=== PATIENT | female | born 1970 | race Caucasian/White ===

== ENCOUNTER 2024-08-24 13:18 | Emergency (ER) | payer BC ==
[~2024-08-24] VITALS: Ht 154.9 cm; Wt 45.4 kg
--- NOTE | 2024-08-24 14:30 | NUR ---
PATIENT C/O GENERALIZED PAIN, SHE STATES PAIN TO LOWER BACK AND RIGHT RIB ARE NEW PAIN, ALSO STATES SHE HAS CHRONIC PAIN TO BILATERAL HANDS AND FEET DUE TO NUEROPATHY. PATIENT ALSO STATES SHE HAS BEEN GETTING MUSCLE SPASMS FREQUENTLY WHICH MAKE IT DIFFICULT TO WALK, THIS HAS BEEN GOING ON FOR 3 DAYS. Addendum: 08/24/24 at 8 by JACINTO PATIENT ALSO C/O INTERMITTENT RIGHT RIB PAIN, TENDER TO TOUCH
[2024-08-24] MEDS: 0.9%NACL 1000ML 1,000 ML IV ONE (14:51)
[2024-08-24] MEDS: PROMETHAZINE HCL 25 MG TABLET PO ONE (14:52)
--- NOTE | 2024-08-24 15:02 | HMCIMG ---
Exam Type: CT HEAD/BRAIN W/O CONTRAST Clinical Information: dizziness/numbness Comparison: None CT Dose Index (CTDI): 57.33 mGy Dose Length Product (DLP): 956.79 total mGy-cm Findings: This study was performed using dose reduction techniques to include automated exposure control and/or adjustment of the mA and/or kV according to patient size. The examination is unremarkable except for atrophy Marte-white matter junction is preserved. No intra or extra axial lesions or fluid collections are seen. Specifically, marte and white matter are normal in signal characteristics with normal caliber of ventricles and periventricular cisterns with no evidence of intra or or extra-axial hemorrhage, lacunar infarct, or major territorial infarct, mass, or other abnormality. There are no infarcts. There are no hemorrhages. Periventricular white matter locations are preserved. The orbital contents and structures of the posterior fossa are intact. Impression: Atrophy. This study was performed using dose reduction techniques to include automated exposure control and/or adjustment of the mA and/or kV according to patient size.
[2024-08-24 15:28] LABS: BASOPHILS # (AUTO) 0.09 K/uL (0.00-0.20); BASOPHILS % (AUTO) 1.1 % (0.0-5.0); EOSINOPHILS # (AUTO) 0.36 K/uL (0.00-0.70); EOSINOPHILS % (AUTO) 4.3 % (0.0-8.0); HEMATOCRIT 41.7 % (36-48); IMMATURE GRANULOCYTE ABSOLUTE 0.03 K/uL (0-1); LYMPHOCYTES % (AUTO) 36.2 % (21.0-51.0); MEAN CORPUSCULAR HEMOGLOBIN 32.3 pg (27.0-33.0); MEAN CORPUSCULAR HGB CONC 32.9 g/dL (32.0-36.0); MEAN CORPUSCULAR VOLUME 98.3 fL (79-99); MONOCYTES # (AUTO) 0.9 K/uL (0.1-1.0); MONOCYTES % (AUTO) 10.3 % (3.0-13.0); NEUTROPHILS % (AUTO) 47.7 % (40.0-77.0); PLATELET COUNT (AUTO) 156 K/uL (130-400); RED BLOOD CELL COUNT(AUTO) 4.24 MIL/uL (4.00-5.50); RED CELL DISTRIBUTION WIDTH 15.7 % (11.0-15.5); WHITE BLOOD COUNT (AUTO) 8.3 K/uL (4.8-10.8)
[2024-08-24 15:40] LABS: CREATININE 0.6 mg/dL (0.5-1.0); POTASSIUM 4.4 mmol/L (3.5-5.1)
[2024-08-24 15:49] LABS: MAGNESIUM 2.1 mg/dL (1.80-2.40)
--- NOTE | 2024-08-24 16:13 | HMCIMG ---
RIGHT RIBS/CHEST RADIOGRAPHS - 5 VIEWS INDICATION: Right rib pain COMPARISON: None FINDINGS: Heart size is normal. Lungs are clear. No evidence for pneumothorax or pleural effusion. No evidence for pulmonary parenchymal contusion. Nondisplaced lateral right eighth rib fracture. No radiopaque foreign body noted. IMPRESSION: 1. Nondisplaced lateral right eighth rib fracture. 2. No radiographic evidence for any acute cardiopulmonary process.
[2024-08-24 16:59] LABS: BILIRUBIN,URINE NEGATIVE (NEGATIVE); COLOR,URINE LIGHT-YELLOW (YELLOW); GLUCOSE, URINE (UA) NEGATIVE (NEGATIVE); KETONES,URINE NEGATIVE (NEGATIVE); LEUKOCYTE ESTERASE ,URINE 500 Leu/uL (NEGATIVE); NITRATE,URINE NEGATIVE (NEGATIVE); OCCULT BLOOD,URINE NEGATIVE (NEGATIVE); PH,URINE 7.5 (5.0-8.0); PROTEIN,URINE NEGATIVE (NEGATIVE); UROBILINOGEN,URINE 0.2 mg/dL (0.2-1.0)
[2024-08-24 17:03] LABS: ADD UA MICROSCOPIC YES; APPEARANCE,URINE HAZY (CLEAR)
[2024-08-24 17:11] LABS: BACTERIA,URINE MOD /HPF (None Seen); RBC,URINE 0-1 /HPF (0-1); SQUAMOUS EPITHELIAL CELL,UR RARE /HPF (0-2); WBC,URINE 26-50 /HPF (0-1)
[2024-08-24] MEDS: ketOROlac 30MG VIAL (30MG/ML) IVP ONE (17:30)
--- NOTE | 2024-08-24 18:31 | ERN ---
General Chief Complaint: Low Back Pain/Injury Stated Complaint: LOSING FEELING IN BOTH LEGS FOR A WEEK/DIZZY Time Seen by MD: 17:19 History of Present Illness Initial Comments Patient comes in with a week-long history of feeling lightheaded and decreased sensation in her bilateral lower extremities as well as right chest pain. Severity: moderate Allergies: Coded Allergies: lidocaine (Unverified Allergy, Unknown, 08/24/24) haloperidol (Unverified Adverse Reaction, Unknown, 08/24/24) " CONVULSIONS" STATED BY PATIENT methocarbamol (Unverified Adverse Reaction, Unknown, 08/24/24) Past Medical History Past Medical History: Asthma, Other Medical History Other: CVAX2, NEUROPATHY Past Surgical History: Other Constitutional: (-) chills, (-) diaphoresis, (-) fever, (-) malaise, (-) weakness, (-) other documentation EENTM: (-) eye pain, (-) blurred vision, (-) tearing, (-) double vision, (-) ear pain, (-) ear discharge, (-) nose pain, (-) nose congestion, (-) throat pain, (-) Throat swelling, (-) mouth pain, (-) tooth pain, (-) mouth swelling, (-) other documentation Respiratory: (-) cough, (-) orthopnea, (-) short of breath, (-) stridor, (-) wheezing, (-) other documentation Cardiovascular: (+) chest pain, (+) edema, (+) palpitations, (+) syncope, (+) dyspnea on exertion, (+) other documentation Gastrointestinal/Abdominal: (-) nausea, (-) vomiting, (-) diarrhea, (-) abdominal pain, (-) abdominal distention, (-) constipation, (-) rectal bleeding, (-) dark stool/melena, (-) other documentation Musculoskeletal: (-) Neck pain, (-) back pain, (-) Flank Pain, (-) joint pain, (-) joint swelling, (-) muscle pain, (-) muscle stiffness, (-) gout, (-) other documentation Physical Exam General Appearance: (+) mild distress Orientation: (+) alert Head/Face Trauma: No Eye: bilateral eye normal inspection, bilateral eye PERRL, bilateral eye EOMI Ear, Nose, Throat: (+) hearing grossly normal, (+) normal ENT inspection Neck: (+) normal inspection, (+) supple Respiratory Comment Patient has right chest wall tenderness Heart: (+) regular Vascular: (+) no edema, (+) normal peripheral pulse Gastrointestinal: (+) soft, (+) non-tender Results Laboratory and Microbiology Lab and Micro Result Laboratory Tests Test 08/24/24 15:15 08/24/24 16:45 White Blood Count 8.3 K/uL (4.8-10.8) Red Blood Count 4.24 MIL/uL (4.00-5.50) Hemoglobin 13.7 g/dL (12.0-16.0) Hematocrit 41.7 % (36-48) Mean Corpuscular Volume 98.3 fL (79-99) Mean Corpuscular Hemoglobin 32.3 pg (27.0-33.0) Mean Corpuscular Hemoglobin Concent 32.9 g/dL (32.0-36.0) Red Cell Distribution Width 15.7 % (11.0-15.5) H Platelet Count 156 K/uL (130-400) Mean Platelet Volume 10.6 fL (7.5-10.5) H Immature Granulocyte % (Auto) 0.4 % (0-1) Neutrophils (%) (Auto) 47.7 % (40.0-77.0) Lymphocytes (%) (Auto) 36.2 % (21.0-51.0) Monocytes (%) (Auto) 10.3 % (3.0-13.0) Eosinophils (%) (Auto) 4.3 % (0.0-8.0) Basophils (%) (Auto) 1.1 % (0.0-5.0) Neutrophils # (Auto) 4.0 K/uL (1.8-7.7) Lymphocytes # (Auto) 3.0 K/uL (1.0-4.8) Monocytes # (Auto) 0.9 K/uL (0.1-1.0) Eosinophils # (Auto) 0.36 K/uL (0.00-0.70) Basophils # (Auto) 0.09 K/uL (0.00-0.20) Absolute Immature Granulocyte (auto 0.03 K/uL (0-1) Nucleated Red Blood Cells 0.0 % (0.0-0.19) Sodium Level 140 mmol/L (136-145) Potassium Level 4.4 mmol/L (3.5-5.1) Chloride Level 105 mmol/L (101-111) Carbon Dioxide Level 28 mmol/L (21-32) Blood Urea Nitrogen 12 mg/dL (7-18) Creatinine 0.6 mg/dL (0.5-1.0) Glomerular Filtration Rate Calc 109 mL/min (>90) Random Glucose 90 mg/dL (70-105) Total Calcium 9.1 mg/dL (8.5-10.1) Magnesium Level 2.10 mg/dL (1.80-2.40) Total Creatine Kinase 97 U/L (21-232) Troponin I High Sensitivity 9 ng/L (4-50) Urine Color LIGHT-YELLOW (YELLOW) Urine Appearance HAZY (CLEAR) Urine pH 7.5 (5.0-8.0) Urine Specific [place] 1.008 (1.001-1.031) Urine Protein NEGATIVE mg/dL (NEGATIVE) Urine Glucose (UA) NEGATIVE mg/dL (NEGATIVE) Urine Ketones NEGATIVE mg/dL (NEGATIVE) Urine Occult Blood NEGATIVE (NEGATIVE) Urine Nitrate NEGATIVE (NEGATIVE) Urine Bilirubin NEGATIVE mg/dL (NEGATIVE) Urine Urobilinogen 0.2 mg/dL (0.2-1.0) Urine Leukocyte Esterase 500 [place]iney/uL (NEGATIVE) H Urine RBC 0-1 /HPF (0-1) Urine WBC 26-50 /HPF (0-1) H Urine Squamous Epithelial Cells RARE /HPF (0-2) Urine Amorphous Crystals (Auto) FEW /LPF (None Seen) Urine Bacteria MOD /HPF (None Seen) MDM Patient's symptomology suggests dehydration and possibly an infection. She has been given Zofran a chemistry panel a CBC and a UA has been ordered. Toradol has been given for her right rib pain and a chest x-ray ordered. CT scan of her head is negative chest x-ray shows a nondisplaced right rib fracture chemistry panel is normal CBC is normal patient has a urinary tract infection I will give her a g of Ancef and discharge her home with a prescription for Ancef. Patient was also concerned about the right rib pain chest x-ray showed a nondisplaced rib fracture there was nothing to do to treat that except pain medications. Patient was wondering why she was having trouble walking. I performed orthostatic hypotension measurements on her and they were normal. We have tried to have her walk again and she feels fine she would like to go home she does have a walker in her car she will use that. ED Course Orders Procedure Category Date Status Time Cbc With Differential LAB 08/24/24 Complete 14:16 Basic Metabolic Panel LAB 08/24/24 Complete 14:16 Magnesium LAB 08/24/24 Complete 14:16 Creatine Kinase, Total LAB 08/24/24 Complete 14:16 Urinalysis Profile LAB 08/24/24 Complete 14:16 Troponin I High LAB 08/24/24 Complete Sensitivity 14:16 Ct Head/Brain W/O CT 08/24/24 Resulted Contrast 14:16 Promethazine Hcl PHA 08/24/24 Complete (Phenergan) 14:30 0.9%Nacl 1000ml (Ns PHA 08/24/24 Complete 1000ml) 14:30 Ribs Uni Rt W Pa RAD 08/24/24 Resulted Chest 3+ Vws 14:58 Culture Urine MYRNA 08/24/24 In Process 17:03 Ketorolac PHA 08/24/24 Complete Tromethamine 30mg/Ml 17:30 Cyclobenzaprine Hcl PHA 08/24/24 Complete (Cyclobenzaprine Hcl 18:30 Meloxicam 7.5mg PHA 08/24/24 Complete (Mobic 7.5mg) 19:00 Cefazolin Sodium PHA 08/24/24 In Process (Ancef) 19:30 Orthostatic Vital CPOE 08/24/24 Transmitted Signs 19:03 *Nursing CPOE 08/24/24 Transmitted Communication: 19:03 Current Medications Medications (Trade) Dose Ordered Sig/Ambar Route PRN Reason Start Time Stop Time Status Last Admin Dose Admin Cefazolin Sodium (Ancef) 1 gm Q8H IVPB 08/24/24 19:30 09/03/24 19:29 Cyclobenzaprine HCl (Cyclobenzaprine HCl) 10 mg ONCE ONCE PO 08/24/24 18:30 08/24/24 18:31 DC 08/24/24 19:02 Ketorolac Tromethamine (toRADol) 30 mg ONCE ONCE IVP 08/24/24 17:30 08/24/24 17:31 DC 08/24/24 17:30 Meloxicam (Mobic 7.5mg) 15 mg ONCE ONCE PO 08/24/24 19:00 08/24/24 19:01 DC 08/24/24 19:02 Promethazine HCl (Phenergan) 12.5 mg ONCE ONCE PO 08/24/24 14:30 08/24/24 14:31 DC 08/24/24 14:52 Sodium Chloride 1,000 ml @ 0 mls/hr ONCE ONCE IV 08/24/24 14:30 08/24/24 14:31 DC 08/24/24 14:51 Vital Signs Date Time Temp Pulse Resp B/P (MAP) Pulse Ox O2 Delivery O2 Flow Rate FiO2 08/24/24 19:27 98.1 68 18 126/83 97 Room Air* 0 21 08/24/24 18:15 97.9 86 18 118/80 97 Room Air* 0 21 08/24/24 17:00 98.1 78 18 105/60 93 Room Air* 0 21 08/24/24 16:00 97.5 93 18 104/61 Room Air* 0 21 08/24/24 15:00 98.1 84 18 110/70 96 Room Air* 0 21 08/24/24 14:15 98.4 78 20 115/78 96 Room Air* 0 21 08/24/24 13:45 98.1 87 16 83/65 100 Room Air 0 08/24/24 13:45 98.1 87 16 83/65 98 Room Air* 0 21 DX & DISP Disposition: Discharge Departure Impression: Primary Impression: UTI (urinary tract infection) Additional Impression: Dehydration Condition: Stable Additional Instructions: Please return to the emergency room if you find yourself having difficulty breathing. Also return if the symptoms of the urinary tract infection such as l ightheadedness do not improve. I have written a prescription for Keflex and sent to to your pharmacy. Referrals: HO WANG MD (PCP) CELE RAND MD August 24, 2024 18:31
--- NOTE | 2024-08-24 19:00 | NUR ---
PATIENT CONTINUES TO COMPLAIN OF INTERMITTENT MUSCLE CRAMPS AND INTERMITTENT RIGHT RIB PAIN AND LOWER BACK PAIN
[2024-08-24] MEDS: CYCLOBENZAPRINE HCL 10 MG TABLET PO ONE (19:02)
[2024-08-24] MEDS: MELOXICAM 7.5 MG TABLET PO ONE (19:02)
--- NOTE | 2024-08-24 19:26 | NUR ---
ORTHOSTATICS LYIN/80 HR 70, SITTIN/83 HR 68, STANDIN/89 HR 124/89
[2024-08-24] MEDS: ceFAZolin SODIUM 2 GM VIAL IVPB SCH (20:49)
[2024-08-24 21:25] VITALS: BP 112/75; PULSE 74; RESP 18; TEMP 97.9; O2SAT 99
[2024-08-24] MEDS ORDERED: CEPH500B PO (22:07)
--- NOTE | 2024-08-24 22:09 | NUR ---
PATIENT RESTING COMFORTABLY AT THIS TIME, NO DISTRESS NOTED
[2024-08-24] MEDS: ibuPROFEN 600 MG TABLET PO ONE (22:20)
== END 2024-08-24 22:25 | disposition home or self-care (01) ==
LOC: EDH 13:18
DX: N39.0 Urinary tract infection, site not specified (principal); E86.0 Dehydration; J45.909 Unspecified asthma, uncomplicated
CPT/HCPCS: 99284; 96361; 96365; 70450; 96375; 82550; 83735; 84484; 80048; 85025; 87086 ×2; 87186; 81001; 36415; 71101; J1885 ×2; J7030; Q0169; J0690

== ENCOUNTER 2024-12-08 18:09 | Emergency (ER) | payer BC ==
[~2024-12-08] VITALS: Ht 154.9 cm; Wt 43.1 kg
[~2024-12-08 18:09] MED LIST: CEPH500B PO
--- NOTE | 2024-12-08 18:47 | ERN ---
ED Note History of Present Illness Stated Complaint: MULTIPLE COMPLAINTS Chief Complaint: Multiple Complaints Time Seen by MD: 18:12 Dictation: PATIENT IS A 53-YEAR-OLD FEMALE COMING IN WITH MULTIPLE COMPLAINTS. FIRST COMPLAINT IS SHE STATES SHE HAS HAS TINNITUS TO BOTH EARS FOR THE LAST WEEK. WITH A GENERALIZED HEADACHE NO NAUSEA NO VOMITING NO DIARRHEA. SAID SHE HAS HAD TINNITUS IN THE PAST AND USUALLY COMES WHEN SHE HAS A KIDNEY INFECTION. 2ND COMPLAINT IS OF GENERALIZED BODY WEAKNESS, 3RD COMPLAINT IS BILATERAL FLANK PAIN OVER MY KIDNEYS. NO FEVER NO CHILLS NO PRIMARY CARE DOCTOR. SHE STATES SHE IS WORKING THROUGH AN AGENCY TO GET SOCIAL SECURITY DISABILITY. SHE SAID SHE HAS BEEN TAKING IBUPROFEN [id number] NEEDED FOR HER HEADACHES. STATES HER HEADACHES RESPOND WELL TO IBUPROFEN. Allergies: Coded Allergies: lidocaine (Unverified Allergy, Unknown, 08/24/24) haloperidol (Unverified Adverse Reaction, Unknown, 08/24/24) " CONVULSIONS" STATED BY PATIENT methocarbamol (Unverified Adverse Reaction, Unknown, 08/24/24) Home Meds Active Scripts Cephalexin Monohydrate (Keflex) 500 Mg Cap, 500 MG PO QID for 7 Days, #28 CAP Prov:CELE RAND MD 08/24/24 Past Medical History Past Medical History: Asthma, Other Additional Past Medical Hx: CVAX2, NEUROPATHY Surgical History: Other History: Not Applicable RN Note Reviewed/Agreed w/PFSH: Yes Review of System Dictation CONSTITUTIONAL: NEGATIVE EXCEPT FOR HPI WEAKNESS HEAD/FACE: NEGATIVE EXCEPT FOR HPI EENT: NEGATIVE EXCEPT FOR HPI RESPIRATORY: NEGATIVE EXCEPT FOR HPI GASTROINTESTINAL/ABDOMINAL: NEGATIVE EXCEPT FOR HPI BILATERAL FLANK PAIN GENITOURINARY: NEGATIVE EXCEPT FOR HPI MUSCULOSKELETAL: NEGATIVE EXCEPT FOR HPI INTEGUMENTARY: NEGATIVE EXCEPT FOR HPI NEUROLOGICAL/PSYCH: NEGATIVE EXCEPT FOR HPI BILATERAL TINNITUS HEMATOLOGIC/LYMPHATIC: NEGATIVE EXCEPT FOR HPI ALL SYSTEMS NEGATIVE, EXCEPT NOTED ABOVE. 13 POINT REVIEW OF SYSTEMS ASSESSED AND ALL NEGATIVE EXCEPT FOR ABOVE. Initial Vital Sign VS Vital Signs Date Time Temp Pulse Resp B/P (MAP) Pulse Ox O2 Delivery O2 Flow Rate FiO2 12/08/24 18:11 97.5 79 18 160/85 98 Room Air 12/08/24 19:21 0 21 Physical Exam Dictation VITAL SIGNS REVIEWED MILD+ ACUTE DISTRESS, WELL DEVELOPED, NOURISHED. HEAD AND FACE: NON-TRAUMATIC. EYES: PERRL, PINK CONJUNCTIVAS, EYELID NO TRAUMA, ANTERIOR CHAMBER WITH ARCUS SENILIS. EARS: PINNAS INTACT AND NO SIGNS OF TRAUMA OR ERYTHEMA EAR CANALS CLEAR AND NO DISCHARGE TM NO ERYTHEMA NOSE: NO DISCHARGE, NO BLEEDING. OROPHARYNX: MOUTH NORMAL, TONGUE PINK, PHARYNX CLEAR,NO ERYTHEMA, TONSILS NO EXUDATES, NO ABSCESSES NOTED, MUCOUS MEMBRANE MOIST NECK: SUPPLE, NON-TENDER, NO THYROMEGALY, NO MASSES, NO JVD, NO BRUITS BREAST:DEFERRED CHEST:NO TENDERNESS, NO CREPITUS, NO PARADOXICAL MOVEMENT, NO RETRACTIONS LUNGS:CLEAR, WELL-VENTILATED, SYMMETRIC, NO RALES, NO WHEEZING, NO RHONCHI, NO STRIDOR, GOOD BREATH SOUNDS BILATERALLY HEART: REGULAR RATE, REGULAR RHYTHM, NO MURMUR, NO GALLOPS VASCULAR: NO PERIPHERAL EDEMA, ABDOMEN: SOFT, POSITIVE BOWEL SOUNDS, NONDISTENDED, NO GUARDING, NONTENDER, NO REBOUND, NO MASSES NO HEPATOMEGALY, NO SPLENOMEGALY, NO MARLOW'S SIGN, NO HERNIAS. NEGATIVE CVAT BILATERALLY RECTAL: DEFERRED GENITAL: DEFERRED NEUROLOGICAL: NORMAL SPEECH, MOTOR FUNCTION INTACT, SENSORY FUNCTION INTACT MUSCULOSKELETAL: NECK NONTENDER, FULL RANGE OF MOTION, BACK NONTENDER, FULL RANGE OF MOTION, EXTREMITIES: NONTENDER, FULL RANGE OF MOTION SKIN: COLOR PINK, DRY, NO TURGOR, NO RASH, NO LACERATIONS, NO ABRASIONS, NO CONTUSIONS. LYMPHATIC: DEFERRED Results (Laboratory/Radiology) Laboratory/Radiology Laboratory Tests Test 12/08/24 18:42 12/08/24 21:13 White Blood Count 6.7 K/uL (4.8-10.8) Red Blood Count 4.49 MIL/uL (4.00-5.50) Hemoglobin 14.3 g/dL (12.0-16.0) Hematocrit 43.6 % (36-48) Mean Corpuscular Volume 97.1 fL (79-99) Mean Corpuscular Hemoglobin 31.8 pg (27.0-33.0) Mean Corpuscular Hemoglobin Concent 32.8 g/dL (32.0-36.0) Red Cell Distribution Width 14.0 % (11.0-15.5) Platelet Count 172 K/uL (130-400) Mean Platelet Volume 10.3 fL (7.5-10.5) Immature Granulocyte % (Auto) 0.3 % (0-1) Neutrophils (%) (Auto) 51.7 % (40.0-77.0) Lymphocytes (%) (Auto) 35.8 % (21.0-51.0) Monocytes (%) (Auto) 7.5 % (3.0-13.0) Eosinophils (%) (Auto) 4.0 % (0.0-8.0) Basophils (%) (Auto) 0.7 % (0.0-5.0) Neutrophils # (Auto) 3.4 K/uL (1.8-7.7) Lymphocytes # (Auto) 2.4 K/uL (1.0-4.8) Monocytes # (Auto) 0.5 K/uL (0.1-1.0) Eosinophils # (Auto) 0.27 K/uL (0.00-0.70) Basophils # (Auto) 0.05 K/uL (0.00-0.20) Absolute Immature Granulocyte (auto 0.02 K/uL (0-1) Nucleated Red Blood Cells 0.0 % (0.0-0.19) Sodium Level 139 mmol/L (136-145) Potassium Level 4.4 mmol/L (3.5-5.1) Chloride Level 101 mmol/L (101-111) Carbon Dioxide Level 32 mmol/L (21-32) Blood Urea Nitrogen 11 mg/dL (7-18) Creatinine 0.7 mg/dL (0.5-1.0) Glomerular Filtration Rate Calc 105 mL/min (>90) Random Glucose 118 mg/dL (70-105) H Total Calcium 9.1 mg/dL (8.5-10.1) Troponin I High Sensitivity 7 ng/L (4-50) Urine Color LIGHT-YELLOW (YELLOW) Urine Appearance CLEAR (CLEAR) Urine pH 7.0 (5.0-8.0) Urine Specific [place] 1.007 (1.001-1.031) Urine Protein NEGATIVE mg/dL (NEGATIVE) Urine Glucose (UA) NEGATIVE mg/dL (NEGATIVE) Urine Ketones NEGATIVE mg/dL (NEGATIVE) Urine Occult Blood NEGATIVE (NEGATIVE) Urine Nitrate NEGATIVE (NEGATIVE) Urine Bilirubin NEGATIVE mg/dL (NEGATIVE) Urine Urobilinogen 0.2 mg/dL (0.2-1.0) Urine Leukocyte Esterase 250 [place]/uL (NEGATIVE) H Urine RBC 0-1 /HPF (0-1) Urine WBC 11-25 /HPF (0-1) H Urine Squamous Epithelial Cells RARE /HPF (0-2) Urine Bacteria FEW /HPF (None Seen) Labs Reviewed?: Yes EKG Comment: EKG SINUS RHYTHM/HEART RATE 79/AXIS NORMAL/NO ECTOPY ED Course ED Course Orders Procedure Category Date Status Time Cbc With Differential LAB 12/08/24 Complete 18:28 Urinalysis Profile LAB 12/08/24 Complete 18:28 Basic Metabolic Panel LAB 12/08/24 Complete 18:28 Troponin I High LAB 12/08/24 Complete Sensitivity 18:30 12 Lead Ekg Tracing- EKG 12/08/24 Logged Technical 18:30 Albuterol 0.083% PHA 12/08/24 Complete 2.5mg/3ml (Proventil 20:00 Culture Urine MYRNA 12/08/24 Logged 21:28 Current Medications Medications (Trade) Dose Ordered Sig/Ambar Route PRN Reason Start Time Stop Time Status Last Admin Dose Admin Albuterol Sulfate (Proventil 0.083% 2.5mg/3ml) 5 mg ONCE ONCE IH 12/08/24 20:00 12/08/24 20:01 DC 12/08/24 20:13 Vital Signs Date Time Temp Pulse Resp B/P (MAP) Pulse Ox O2 Delivery O2 Flow Rate FiO2 12/08/24 20:13 54 18 12/08/24 19:21 70 20 105/69 95 Room Air* 0 21 12/08/24 18:11 97.5 79 18 160/85 98 Room Air 2135/PATIENT WILL BE DISCHARGED HOME WITH URINARY TRACT INFECTION MUSCULOSKELETAL PAIN AND TINNITUS CHRONIC. HEART Score Response (Comments) Value History: Low suspicion (0) 0 Age: 45-65yrs (+1) 1 Risk Factors: 1-2 risk factors (+1) 1 Initial Troponin: Normal limit (0) 0 Total 2 Medical Decision Making MDM MDM: DIFFERENTIAL DIAGNOSIS: TINNITUS/GENERALIZED HEADACHE/ELECTROLYTE IMBALANCE/DEHYDRATION/UTI/PYELONEPHRITIS/MUSCULOSKELETAL PAIN RATIONALE: TESTS CONSIDERED AND ORDERED SECONDARY TO SHARED DECISION MAKING INCLUDE: EKG/LABS PREVIOUS OUTSIDE RECORDS REVIEWED: OLD ER VISITS. RISK OF COMPLICATION AND/OR MORBIDITY OR MORTALITY OF PATIENT MANAGEMENT: NONE MEDICATIONS-PER MEDICATION RECONCILIATION NEED FOR HOSPITALIZATION: PATIENT DOES NOT MEET CRITERIA FOR HOSPITALIZATION. NEED FOR EMERGENCY MAJOR/MINOR SURGERY: NO THERE ARE NO SOCIAL CONCERNS WITH THIS PATIENT. PRESCRIPTION DRUG MANAGEMENT AUGMENTIN/IBUPROFEN PRESCRIPTIONS WILL INCLUDE SYMPTOMATIC CARE PATIENT'S PRIOR EXTERNAL MEDICAL RECORDS FROM OTHER ER VISITS WERE REVIEWED BY ME INDICATED. PRIOR TESTING AND RESULTS FROM PREVIOUS VISITS WERE REVIEWED. PRIOR TESTS WERE TAKEN INTO ACCOUNT WITH MEDICAL DECISION MAKING AND RESOURCE UTILIZATION, INDEPENDENT HISTORIAN/HISTORIANS WERE USED TO OBTAIN COMPLETE MEDICAL HISTORY. I INDEPENDENTLY INTERPRETED THE TEST THAT WERE PERFORMED, RESULTS WERE REVIEWED BY ME AND CONSIDERED FINDINGS ON RADIOLOGY IF ORDERED. MEDICAL MANAGEMENT AND EXAMINATION INTERPRETATION DISCUSSIONS WERE HAD BY ME WITH OTHER QUALIFIED HEALTHCARE PROFESSIONALS INDICATED FOR THE PATIENT'S CARE. DX & DISP Disposition: Discharge Departure Impression: Primary Impression: UTI (urinary tract infection) Additional Impressions: Dehydration, Tinnitus of both ears, Neuropathy Condition: Stable Scripts Ibuprofen (Ibuprofen) 600 Mg Tablet 600 MG PO Q6H PRN for PAIN, #30 TAB Prov: MYRANDA GÓMEZ NP 12/08/24 Amoxicillin/Potassium Clav (Amox Tr-K Clv 875-125 mg Tab) 875 Mg-125 Mg Tablet 1 EACH PO BID for 5 Days, #10 TAB 0 Refills Prov: MYRANDA GÓMEZ NP 12/08/24 Additional Instructions: FOLLOW-UP WITH PRIMARY CARE PROVIDER IN 1 TO 2 DAYS. TAKE MEDICATIONS DIRECTED HERE IN THE EMERGENCY ROOM. OKAY TO CONTINUE HOME MEDICATIONS UNLESS OTHERWISE DISCUSSED DURING YOUR VISIT IN THE EMERGENCY ROOM TODAY. RETURN TO YOUR NEAREST EMERGENCY ROOM IF SYMPTOMS WORSEN OR IF THERE IS NO IMPROVEMENT. CALL 911 IF YOU NEED IMMEDIATE ASSISTANCE. TAKE TYLENOL OR MOTRIN [id number] NEEDED AND IF NO CONTRAINDICATIONS ARE PRESENT. INCREASE ORAL HYDRATION. A WOUND CULTURE OR URINE CULTURE WAS ORDERED HERE IN THE EMERGENCY ROOM DEPARTMENT PLEASE FOLLOW-UP WITH PRIMARY CARE PROVIDER AND ADVISE THEM TO GET REPEAT PORTS FROM OUR FACILITY. IF YOU HAD ANY RANDY WRAP/SPLINTS THAT WERE APPLIED HERE, PLEASE DO NOT REMOVE THEM UNTIL YOU SEE YOUR PRIMARY CARE OR SPECIALTY. TAKE AUGMENTIN DIRECTED UNTIL GONE. INCREASE YOUR WATER INTAKE. TAKE IBUPROFEN NEEDED FOR PAIN. FOLLOW UP WITH THE YOUR FAMILY DOCTOR IN THE NEXT Referrals: HO WANG MD (PCP) Time of Disposition: 21:37 I have reviewed the case, and I agree with, Diagnosis and Plan MYRANDA GÓMEZ NP Dec 08, 2024 18:47
[2024-12-08 18:56] LABS: IMMATURE GRANULOCYTE ABSOLUTE 0.02 K/uL (0-1); NUCLEATED RED BLOOD CELLS 0.0 % (0.0-0.19); PLATELET COUNT (AUTO) 172 K/uL (130-400); RED BLOOD CELL COUNT(AUTO) 4.49 MIL/uL (4.00-5.50); RED CELL DISTRIBUTION WIDTH 14.0 % (11.0-15.5); WHITE BLOOD COUNT (AUTO) 6.7 K/uL (4.8-10.8)
[2024-12-08 19:08] LABS: CREATININE 0.7 mg/dL (0.5-1.0); GLOMERULAR FILTR. RATE CALC 105.0 mL/min (>90); GLUCOSE,RANDOM 118.0 mg/dL (70-105); SODIUM SERUM 139.0 mmol/L (136-145); UREA NITROGEN, BLOOD 11.0 mg/dL (7-18)
[2024-12-08 20:13] VITALS: PULSE 54; RESP 18
[2024-12-08] MEDS: ALBUTEROL 0.083% 2.5 MG/3 ML INH IH ONE (20:13)
[2024-12-08 21:27] LABS: ADD UA MICROSCOPIC YES; APPEARANCE,URINE CLEAR (CLEAR); GLUCOSE, URINE (UA) NEGATIVE (NEGATIVE); LEUKOCYTE ESTERASE ,URINE 250 Leu/uL (NEGATIVE); NITRATE,URINE NEGATIVE (NEGATIVE); OCCULT BLOOD,URINE NEGATIVE (NEGATIVE)
[2024-12-08 21:29] LABS: SQUAMOUS EPITHELIAL CELL,UR RARE /HPF (0-2)
[2024-12-08] MEDS ORDERED: AMOX1TAB16 PO (21:39)
[2024-12-08] MEDS ORDERED: IBUP-1492 PO (21:39)
[2024-12-08] MEDS: AMOX/CLAV 875/125MG TAB PO ONE (21:46)
[2024-12-08 21:55] VITALS: BP 110/71; PULSE 68; RESP 22; O2SAT 96
--- NOTE | 2024-12-09 06:33 | EKG ---
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
== END 2024-12-08 22:19 | disposition home or self-care (01) ==
LOC: EDH 18:09
DX: N39.0 Urinary tract infection, site not specified (principal); E86.0 Dehydration; H93.13 Tinnitus, bilateral; G62.9 Polyneuropathy, unspecified; J45.909 Unspecified asthma, uncomplicated; Z79.899 Other long term (current) drug therapy
CPT/HCPCS: 36415; 80048; 81001; 84484; 85025; 87086; 93005; 94640; 99284